=== PATIENT | male | born 1960 | race African-American/Black ===

== ENCOUNTER 2016-11-01 23:00 | Inpatient (IN) | payer OTHER ==
[~2016-11-01] VITALS: Ht 180.3 cm; Wt 59.9 kg
--- NOTE | ~2016-11-01 | PN ---
Unit #: [id number] #: [id number] Patient: RACHEL LOWERY [id number] [facility] [address] [place] [address] [id number] I MR#: [id number] NAME: RACHEL LOWERY ROOM: P211 Age: 56 Sex: M Admission Date: 11/02/2016 : 1960 Attending Physician: Jonathan Coley M.D. Admitting Physician: Jonathan Coley M.D. Primary Care Physician: Primary Care Physician Cassi COVINGTON PROGRESS NOTES DATE 11/03/2016 DISCUSSION The patient seems a bit brighter today and is reporting some reduction in his hopelessness and suicidal ideation. We continue current treatment and I have encouraged the patient to increase his participation within the therapeutic milieu. Should he sustain progress discharge could place as early as tomorrow. Dictated by... Jonathan Coley M.D. CB/crow TD: 11/04/2016 00:12 JOB #: [id number] [facility] PROGRESS NOTES Page 1 of 1 X Jonathan Coley MD X PROGRESS NOTE
--- NOTE | ~2016-11-01 | CO ---
Unit #: [id number] #: [id number] Patient: RACHEL LOWERY [id number] [facility] [address] [place] [address] [id number] I MR#: [id number] NAME: RACHEL LOWERY ROOM: P206 Age: 56 Sex: M Admission Date: 11/02/2016 : 1960 Attending Physician: Jonathan Coley M.D. Primary Care Physician: Primary Care Physician No CONSULTATION REPORT JOB NOTE: DICTATED FOR NOT DICTATED Ordering provider is Dr. Coley. REASON FOR CONSULTATION Abscess of left arm. SUBJECTIVE The patient reports that on admission, he had a very small area of tenderness and induration on his left medial elbow that has since gotten larger and more painful and is now producing heat. He denies any injury to this area. He does have full range of motion of the elbow. OBJECTIVE The patient has approximately 2 cm area of induration. No visible lesion is present. The area is tender to palpation and warm to touch. He has full range of motion of his arm and no erythema as noted. ASSESSMENT Abscess. PLAN Plan is to start the patient on Bactrim. Continue to monitor. Dictated by... Kevin Diaz/deidra TD: 11/05/2016 12:54 JOB #: [id number] CONSULTATION REPORT Page 1 of 1 X JOCE TAMAYO APRN CONSULTATION REPORT
--- NOTE | ~2016-11-01 | HP ---
Unit #: [id number] #: [id number] Patient: RACHEL LOWERY [id number] [place] [address] [id number] MR#: [id number] NAME: RACHEL LOWERY ROOM: P211 Age: 56 Sex: M Admission Date: 11/02/2016 : 1960 Attending Physician: Jonathan Coley M.D. Admitting Physician: Jonathan Coley M.D. Primary Care Physician: Primary Care Physician No HISTORY AND PHYSICAL HISTORY OF PRESENT ILLNESS The patient is a 56-year-old male admitted to [address] [place] [address] on 11/02/2016 for suicidal ideations and crack cocaine abuse. PAST MEDICAL HISTORY 1. Eczema. 2. Left shoulder ligament tear. PAST SURGICAL HISTORY Throat surgery after having his throat slit. ALLERGIES No known drug allergies. SOCIAL HISTORY He is unemployed and homeless. He smoked 1/2 pack of cigarettes daily and uses crack cocaine on a daily basis. FAMILY HISTORY Noncontributory. REVIEW OF SYSTEMS CONSTITUTIONAL: No fever or chills. HEENT: Denies any sore throat, ear pain or runny nose. CARDIOVASCULAR: Denies chest pain, irregular heart rhythm or palpitations. CHEST: Denies shortness of breath or cough. No hemoptysis. GASTROINTESTINAL: Denies nausea, vomiting, diarrhea or chronic constipation. ENDOCRINE: Denies history of increased thirst or urination. No recent significant weight loss or gain. GENITOURINARY: Denies dysuria, frequency, or hematuria. SKIN: He complains of eczema. HEMATOLOGIC: Denies history of increased bleeding or bruising. MUSCULOSKELETAL: Denies any hot, swollen joints. No generalized muscle pain. NEUROLOGIC: Denies problems with vision or speech. No frequent, severe headaches. No numbness, tingling or weakness in any extremities. Denies loss of bladder or bowel control. CURRENT MEDICATIONS Home medications could not be verified yet by the pharmacy. PHYSICAL EXAMINATION Unit #: [id number] #: [id number] Patient: RACHEL LOWERY GENERAL: He is awake, alert, oriented, in no acute distress. VITAL SIGNS: Temperature 98.3, heart rate 58, respirations 17, blood pressure 116/72. HEIGHT: 5 feet 11. WEIGHT: 132 pounds. SKIN: He has dry, flaking erythematous areas on his bilateral arms and on his abdomen. HEENT: Normocephalic. TMs not viewed. Oral and nasal passages clear. Conjunctivae clear. PERRLA. EOMs intact. NECK: Supple without lymphadenopathy or thyromegaly. HEART: Regular rate and rhythm without murmur. LUNGS: Clear. ABDOMEN: Soft, nontender. : Not done. EXTREMITIES: No evidence of cyanosis, clubbing or edema. Moves all without focal deficit. NEUROLOGICAL: Grossly within normal limits. Cranial Nerves: II: Visual crockett are intact. III, IV AND : Extraocular movements are intact. Pupils are equal, round and reactive to light. V: Facial sensation is grossly normal. VII: Facial movements and expression are normal. VIII: Auditory acuity grossly intact. IX, X: Uvula is midline. Phonation is normal. XI: Patient shrugs shoulders and turns head normally. XII: Tongue protrudes in the midline. Sensory and Motor Function: Sensory and motor sensation is grossly normal. Motor: moves all extremities well. Coordination: Gait is normal. Deep Tendon Reflexes: Intact. IMPRESSION 1. Psychiatric admission. 2. Eczema. 3. Left shoulder ligament tear. RECOMMENDATIONS PSYCHIATRIC: Per psychiatrist. MEDICAL: No contraindication to participate in facility's activities. MEDICAL PROGNOSIS Good. MEDICAL CONDITION Stable. Dictated by... Kevin Diaz/dez TD: 11/02/2016 15:19 JOB #: [id number] Unit #: [id number] #: [id number] Patient: RACHEL LOWERY HISTORY AND PHYSICAL Page 1 of 1 X JOCE TAMAYO APRN HISTORY AND PHYSICAL
--- NOTE | ~2016-11-01 | A ---
[facility] DATE: 11/02/16 Patient: RACHEL LOWERY Physician: MARY ANN Address: [address] [place] [address] Room/Bed: [address], Zip: [place] [address] Admit Date: 11/02/16 Date of : [birth year] Height: 5 11 Weight: 131 59.229979 NUTRITIONAL ASSESSMENT: REASON: Low BMI Admitting dx: 56 y/o male admitted with SI w/ plan PMH: Daily crack use, no H&P currently available Anthropometrics: Ht: 71", Wt: 132 lbs, BMI: 18 (underweight) Labs: None available Meds: Reviewed I/O & Bowel function: No issues Assessment: Patient is unemployed and recently homeless. Has been arguing with his girlfriend and feels helpless. He does crack cocaine daily. No H&P currently available, patient just admitted today. He is clinically underweight, no past weights available. Scored 0 points on the malnutrition risk screen however he reported a ~4 lb weight loss in days upon admission with poor appetite. Appetite documented as good today per nursing. He is on a regular diet with no caffeine. Suspect PO intake will improve and weight will stabilize with psych tx and by providing 3 meals/day + snacks. See RD recs below. Dx: Underweight r/t psych hx, decreased appetite AEB BMI 18. Intervention: See recs below Monitoring, Evaluation and Goals: 1. PO intake > 50% of meals. 2. Gradual weight gain towards a healthy BMI range. Monitor: per consult Recommendations: 1. Continue regular diet, encourage 3 meals/day and snacks prn. Patient may have large portion entree at lunch/dinner if desired. Encouarge fluid intake. 2. If PO intake is < 50% of meals please have MD order Ensure Plus BID to promote weight gain. [facility] DATE: 11/02/16 Patient: RACHEL LOWERY Physician: MARY ANN Address: [address] [place] [address] Room/Bed: [address], Zip: [place] [address] Admit Date: 11/02/16 Date of : [birth year] Height: 5 11 Weight: 131 59.519441 3. Please consult RD with any further nutritional needs. Mild nutrition risk Respectfully, Sushila Mccormack, ALLAN, LD Food and Nutritional Services [facility] cc: client file
--- NOTE | ~2016-11-01 | CO ---
Unit #: [id number] #: [id number] Patient: RACHEL LOWERY [id number] [facility] [address] [place] [address] [id number] MR#: [id number] NAME: RACHEL LOWERY ROOM: P211 Age: 56 Sex: M Admission Date: 11/02/2016 : 1960 Attending Physician: Jonathan Coley M.D. Primary Care Physician: Primary Care Physician No Consultation Date: 11/02/2016 CONSULTATION REPORT The patient is a 56-year-old male admitted to [address] [place] [address] on 11/02/2016. ORDERING PROVIDER Dr. Coley. REASON FOR CONSULT Eczema. SUBJECTIVE The patient reports that he was seen at [facility] 2 days ago and given a steroid injection. 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 He has flare-ups of eczema at least yearly and has been dealing with the problems for many years. OBJECTIVE Dry, scaly, erythematous areas noted on bilateral arms, back and abdomen. No drainage or weeping. ASSESSMENT Eczema. PLAN Start him on a steroid cream and Zyrtec. Dictated by... Kevin Diaz/deidra TD: 11/03/2016 05:28 JOB #: [id number] Unit #: [id number] #: [id number] Patient: RACHEL LOWERY CONSULTATION REPORT Page 1 of 1 X JOCE TAMAYO APRN X CONSULTATION REPORT
--- NOTE | ~2016-11-01 | PA ---
Unit #: [id number] #: [id number] Patient: RACHEL LOWERY [id number] [facility] [address] [place] [address] [id number] MR#: [id number] NAME: RACHEL LOWERY ROOM: P211 Age: 56 Sex: M Admission Date: 11/02/2016 : 1960 Date of Assessment: 11/02/2016 Attending Physician: Jonathan Coley M.D. Admitting Physician: Jonathan Coley M.D. Primary Care Physician: Primary Care Physician No PSYCHIATRIC ASSESSMENT IDENTIFYING INFORMATION The patient is a 56-year-old male admitted to the [address] [place] [address] unit with suicidal ideation and increased abuse of cocaine. CHIEF COMPLAINT "A lot going on." INFORMANT(S) Patient, reliability is good. HISTORY OF PRESENT ILLNESS The patient is a 56-year-old male who was admitted after he had presented to this facility voicing positive suicidal ideation with plan to slit his throat. The patient reports that he had been using a large amount of crack cocaine yesterday and had been using for about the past 3 to 4 days. He uses 200 to 300 dollars of crack cocaine on a daily basis per his report. The patient had recently been expelled from the domicile he shared with his daughter following a dispute, and he is currently homeless. The patient denies prior psychiatric treatment or chemical dependence treatment of any kind. He denies prior suicide attempts or gestures. He continues to complain of dysphoric mood and hopelessness when seen today. PAST PSYCHIATRIC HISTORY As above. PAST MEDICAL HISTORY The patient suffers from eczema and is scheduled for shoulder surgery in the near future. MEDICATIONS The patient uses a skin cream for his eczema. ALLERGIES None reported. FAMILY HISTORY Noncontributory. SOCIAL HISTORY The patient is originally from [place], [place], and states that he has a degree in accounting from [employer] in [place], [place], but is not presently employed. The patient admits to cocaine use as noted Unit #: [id number] #: [id number] Patient: RACHEL LOWERY previously. MENTAL STATUS EXAMINATION Examination at this time reveals the patient to be a thin, disheveled male appearing stated age. He is in a state of some dishevelment. He arouses with some difficulty but does participate in interview. He is oriented in all spheres. His mood is dysphoric, his affect flat. Speech is impoverished, but generally well coherent. There are no gross deficits in memory or cognition noted. Intelligence is judged to be in the average range based on fund of knowledge. The patient is cooperative throughout the interview. He is currently endorsing positive suicidal ideation with plan to cut his throat. He denies homicidal ideation. He denies any psychotic symptoms. His judgment and insight appear to be reasonably intact. ASSETS AND LIABILITIES The patient's assets: Motivation for change. Liabilities: Lack of resources, homelessness. DIAGNOSTIC IMPRESSION 1. Cocaine use disorder. 2. Eczema. TREATMENT PLAN The patient remains hospitalized for safety and stabilization. We will continue suicide precautions, and at this point will not initiate any pharmacotherapy with the patient's symptoms of depression. It is my feeling that these are probably substance-induced. The patient will participate in appropriate order of milieu activities. ESTIMATED LENGTH OF STAY 3 to 4 days. Dictated by... Jonathan Coley M.D. NITO/manny TD: 11/02/2016 11:30 JOB #: [id number] PSYCHIATRIC ASSESSMENT Page 1 of 1 X Jonathan Coley MD X PSYCHIATRIC ASSESSMENT
--- NOTE | ~2016-11-01 | DS ---
Unit #: [id number] #: [id number] Patient: RACHEL LOWERY [id number] [facility] [address] [place] [address] [id number] I MR#: [id number] NAME: RACHEL LOWERY ROOM: P206 Age: 56 Sex: M Admission Date: 11/02/2016 : 1960 Discharge Date: 11/04/2016 Attending Physician: Jonathan Coley M.D. Primary Care Physician: Primary Care Physician No DISCHARGE SUMMARY REASON FOR ADMISSION The patient is a 56-year-old male admitted to the [address] [place] [address] with thoughts of suicide and increasing abuse of crack cocaine. HOSPITAL COURSE The patient is admitted to the [address] [place] [address] and placed on suicidal precautions. He was continued on previously prescribed home medications. The patient's stay in the hospital is a fairly brief and uneventful one. His mood improved considerably. During his brief stay in the hospital by 11/04/2016 the patient was in brighter spirits and requested discharge. He was agreeable with a plan for followup in the intensive outpatient program provided by this facility and discharge was ordered. FINAL DIAGNOSIS 1. Cocaine use disorder 2. Dysthymic disorder DISPOSITION ON DISCHARGE The patient is discharged on the following medications: 1. Diprolene applied twice daily to affected area. 2. Claritin 10 mg once daily for environmental allergies. 3. Bactrim DS one tablet twice daily for skin abscess. DIET AND ACTIVITY No dietary or physical restrictions were placed upon the patient at the time of discharge. FOLLOWUP Followup to take place through the auspices of community mental health resources and the intensive outpatient chemical dependence treatment program provided by this facility. Patient's prognosis is considered fair. Dictated by... Jonathan Coley M.D. CB/rcow TD: 11/04/2016 21:09 JOB #: [id number] Unit #: [id number] #: [id number] Patient: RACHEL LOWEYR DISCHARGE SUMMARY Page 1 of 1 X Jonathan Coley MD X DISCHARGE SUMMARY
[2016-11-03 11:31] LABS: URINE APPEARANCE CLEAR; URINE BILIRUBIN NEG (NEG); URINE BLOOD NEG (NEG); URINE COLOR YELLOW; URINE GLUCOSE NEG (NEG); URINE KETONE NEG (NEG); URINE LEUKOCYTE ESTERASE 1+ (NEG); URINE NITRATE NEG (NEG); URINE PH 6.5 (5-8); URINE PROTEIN NEG (NEG); URINE SPECIFIC GRAVITY 1.008 (1.003-1.035); URINE UROBILINOGEN 0.2 MG/DL (NEG)
[2016-11-03 11:37] LABS: URBCS1 AUWI 0-2 /[HPF] (0-2); URINE BACTERIA AUWI NEG (NEGATIVE); URINE SQUAMOUS EPITHELIAL CELL NONE SEEN /[HPF]
[2016-11-03 12:02] LABS: AMPHETAMINE NEG (NEG); BARBITURATES NEG (NEG); BENZODIAZEPINES NEG (NEG); COCAINE POS (NEG); MARIJUANA NEG (NEG); OPIATES NEG (NEG); TRICYCLIC ANTIDEPRESSANTS NEG (NEG); U METHADONE NEG (NEG)
[2016-11-03 13:07] LABS: ALBUMIN SERUM 3.3 g/dL (3.5-5.0); BILIRUBIN,TOTAL 0.4 mg/dL (0.2-2.0); BUN/CREATININE RATIO 16.25; CALCIUM SERUM 9.2 mg/dL (8.4-10.2); CREATININE SERUM 0.8 mg/dL (0.6-1.4); GLOM FILT RATE Estimated 117.4 mL/min (>60); POTASSIUM 4.2 mmol/L (3.5-5.1); PROTEIN TOTAL SERUM 7.8 g/dL (6.0-8.3)
[2016-11-03 13:26] LABS: BASOPHIL% 0.3 % (0-2.5); EOSINOPHIL% 0.8 % (0.0-7.0); LYMPHOCYTE# 1.4 X10e3 (1.0-3.5); LYMPHOCYTE% 42.9 % (17.0-45.0); MEAN CELL VOLUME 82.5 FL (83-96); MEAN CORPUSCULAR HEMOGLOBIN 27.6 PG (28-34); MEAN CORPUSCULAR HGB CONC 33.4 g/dL (30-36); MEAN PLATELET VOLUME 8.5 FL (6.5-11.5); MONOCYTE# 0.6 X10e3 (0-1.0); MONOCYTE% 18.9 % (3.0-12.0); NEUTROPHIL# 1.2 X10e3 (1.5-7.1); NEUTROPHIL% 37.1 % (40-75); PLATELET COUNT 207 X10e3 (140-420); RED BLOOD COUNT 4.73 X10e (3.90-5.60); RED CELL DISTRIBUTION WIDTH 14.4 % (11.0-15.5); WHITE BLOOD COUNT 3.2 X10e3 (4.0-10.5)
[2016-11-03 13:32] LABS: DIFF IND NO
[2016-11-05] MEDS ORDERED: NO MEDICATIONS (14:24)
== END 2016-11-04 15:26 | DRG 897 ==
LOC: P2S 11-02 02:47
PROVIDERS: Specialist
DX: F14.10 Cocaine abuse, uncomplicated (principal); R45.851 Suicidal ideations; L02.414 Cutaneous abscess of left upper limb; L30.9 Dermatitis, unspecified; F17.210 Nicotine dependence, cigarettes, uncomplicated; F34.1 Dysthymic disorder
CPT/HCPCS: 80053; 80307; 81003; 85025

== ENCOUNTER 2016-11-05 08:02 | Inpatient (IN) | payer OTHER ==
[~2016-11-05] VITALS: Ht 180.3 cm; Wt 59.9 kg
--- NOTE | ~2016-11-05 | OR ---
Unit #: [id number] #: [id number] Patient: RACHEL LOWERY [id number] [address] [address] [id number] I MR#: [id number] NAME: RACHEL LOWERY ROOM: 220 Date of Procedure: 11/05/2016 Admission Date: 11/05/2016 Surgeon: Jv Stauffer M.D. : 1960 Attending Physician: Modesto Conti Jr., M.D. Primary Care Physician: Primary Care Physician No OPERATIVE REPORT PREOPERATIVE DIAGNOSIS Abscess, left upper extremity just superior and medial to the antecubital fossa. POSTOPERATIVE DIAGNOSIS Abscess, left upper extremity just superior and medial to the antecubital fossa. PROCEDURE PERFORMED Incision and drainage, left upper extremity abscess. Aerobic and anaerobic cultures sent. ANESTHESIA General endotracheal anesthesia. ESTIMATED BLOOD LOSS Less than 20 mL. INDICATIONS FOR PROCEDURE A 56-year-old gentleman presented to the emergency room with a fluctuant mass in the left upper extremity. DESCRIPTION OF PROCEDURE The patient was transported from his hospital room to the operating room and after induction of general endotracheal anesthesia, left arm was placed on an operating arm board. He had already been on vancomycin. Arm was prepped and draped in usual sterile fashion. Over the fluctuant area, a transverse incision made, dissected down, and entered the abscess cavity, where a grossly purulent drainage was obtained. Cultures were taken from the purulent drainage. I then copiously irrigated the abscess cavity and then packed it with 4x4s sponge soaked in Betadine and wrung out. 2-0 Vicryl sutures were used as stay sutures to keep the packing in place. Dry dressing followed by Kerlix roll and Amandeep wrap were placed. Sponges and needle counts were correct x3. The patient tolerated the procedure well and transported to recovery in stable condition. There was no family or friends to discuss the case with postop. Dictated by... Jv Stauffer M.D. RS/juanal Unit #: [id number] #: [id number] Patient: RACHEL LOWERY TD: 11/05/2016 18:00 JOB #: [id number] OPERATIVE REPORT Page 1 of 1 X Jv Stauffer MD OPERATIVE NOTE
--- NOTE | ~2016-11-05 | A ---
[facility] Therapy DATE: 11/06/16 Patient: RACHEL LOWERY Physician: MARIO Address: [address] [place] [address] Room/Bed: [address] [place] [address], Zip: [place] [address] Admit Date: 11/05/16 Date of : [birth year] Height: 5 11 Weight: 132 59.87 NUTRITIONAL ASSESSMENT: REASON: Low BMI Amitting dx: Pt is a 56 y/o male admitted with a LT arm abscess PMH: Daily crack use, psych problems, throat surgery, 1.5 PPD smoker, [facility] Anthropometrics: HT:71" WT:132# BMI:18.4(underweight) IBW:172# %IBW:77% Labs: Na+: 130 Ca++: 8.2 Meds: Reglan, Versed I/O & Bowel function: BM 11/04 Skin Integrity: Dressing- LUE Estimated Nutrition Needs: Icreased needs Assessment: Chart reviewed, events noted. See admitting dx and PMH as stated above. Pt is currently homeless and awaiting D/C. Of note, pt was recently admitted to [facility]. He denies his abscess is associated with IV drug use, but there is suspicion. Manager Federal was able to speak to pt at bedside. Pt reports a good appetite in the hospital and reports eating 100% of his meals 3x daily. Note empty breakfast tray in room (Pt consumed 100%). RD internet marketing executive encouraged adequate kcal and protein intake, Pt asked for a Vanilla Ensure with his lunch to promote weight gain. Pt denies any recent weight loss. Pt reported no questions at this time. RD to follow up per protocol. Dx: Underweight r/t drug use, psych problems, homeless AEB BMI 18.4 (underweight), 77% IBW. Intervention: See recs below. Monitoring, Evaluation and Goals: 1. Orake intake >75% of meals. 2. Promote gradual weight gain towards a healthy BMI. 3. Promote regular BM's. Recommendations: 1. Continue pt on regular diet and encourage 3 meals/day. [facility] Therapy DATE: 11/06/16 Patient: RACHEL LOWERY Physician: MARIO Address: [address] [place] [address] Room/Bed: [address] [place] [address], Zip: [place] [address] Admit Date: 11/05/16 Date of : [birth year] Height: 5 11 Weight: 132 59.87 2. Please order Vanilla Ensure w/ lunch to promote weight gain. RD to follow Mild nutrition risk Respectfully, Isabel Molina, MS, RD, LD Yessica Child, Manager Safe Food and Nutritional Services [facility] cc: client file
--- NOTE | ~2016-11-05 | DS ---
Unit #: [id number] #: [id number] Patient: RACHEL LOWERY [id number] [address] [place], [place] [address] [id number] MR#: [id number] NAME: RACHEL LOWERY ROOM: 220 Age: 56 Sex: M Admission Date: 11/05/2016 : 1960 Discharge Date: 11/07/2016 Attending Physician: Modesto Conti Jr., M.D. Primary Care Physician: Primary Care Physician No DISCHARGE SUMMARY DISCHARGE DIAGNOSIS Left antecubital space abscess secondary to IV drug abuse. OPERATIVE PROCEDURE Incision and drainage and debridement of left arm abscess. DISCHARGE MEDICATIONS Lortab 7.5 one p.o. q.4 hours p.r.n. pain and Bactrim DS one p.o. b.i.d., #20. HISTORY OF PRESENT ILLNESS AND HOSPITAL COURSE A 56-year-old black male with left antecubital space abscess from drug abuse. He was admitted and given intravenous antibiotics, taken to surgery, was opened, drained, and cleaned out. Postoperative course has been benign. He is ready to do dressing changes at home twice a day. Switch to oral antibiotics and pain medicine. We will see in office in 7 to 10 days. Dictated by... Crow Jiménez/deidra TD: 11/10/2016 16:44 JOB #: [id number] DISCHARGE SUMMARY Page 1 of 1 X Narayan Corrales MD X DISCHARGE SUMMARY
--- NOTE | ~2016-11-05 | US49 ---
[facility] A Service of [facility] RADIOLOGY TEXT RESULTS PATIENT: RACHEL LOWERY LOCATION: C2A : [birth year] UNIT #: [id number] AGE: [address]: Modesto Conti MD SEX: M ORDER DR: [id number] [place], [place] [address] [id number] I MR#: [id number] Acc #: [id number] NAME: RACHEL LOWERY : 1960 SEX: M STUDY DATE/TIME: 11/05/2016 9:31 UNIT: CEDOF ROOM: 06304 STUDY DESCRIPTION: US Extremity Non Vasc Complete Attending Physician: Modesto Conti Jr., M.D. Ordering Physician: Er [facility]icians Primary Care Physician: Primary Care Physician No MEDICAL IMAGING REPORT This report is preliminary unless electronic signature is present EXAM Ultrasound of the left arm soft tissue INDICATIONS Left elbow swelling for 5 days. This is located above the elbow. TECHNIQUE Fuentes-scale and color Doppler sonographic images were obtained through the area of concern. FINDINGS Patient is noted to have extensive subcutaneous edema. There is a complex collection measuring up to 2.1 x 1.4 x 2.2 cm within the area of concern which could reflect either hematoma or abscess. The Visualized vessels appear patent. IMPRESSION Within the area concern the patient has a complex collection measuring 2.1 x 1.4 x 2.2 cm with no internal color Doppler flow, both hematoma and abscess would be in the differential. Extensive subcutaneous edema is noted within the area of the area. Dictated by... Aaliyah Chin M.D. THIS IS AN ELECTRONICALLY VERIFIED REPORT Aaliyah Chin M.D. at 11/06/2016 8:02 AM MORAIMA/joshua TD: 11/05/2016 13:47 JOB #: [id number] [facility] A Service [facility] RADIOLOGY TEXT RESULTS PATIENT: RACHEL LOWERY LOCATION: C2A : [birth year] UNIT #: [id number] AGE: [address]: Modesto Conti MD SEX: M ORDER DR: MEDICAL IMAGING REPORT Page 1 of 1 COPY
--- NOTE | ~2016-11-05 | HP ---
Unit #: [id number] #: [id number] Patient: RACHEL LOWERY [id number] [address] [place], [place] [address] [id number] MR#: [id number] NAME: RACHEL LOWERY ROOM: 220 Age: 56 Sex: M Admission Date: 11/05/2016 : 1960 Attending Physician: Modesto Conti Jr., M.D. HISTORY AND PHYSICAL CHIEF COMPLAINT Severe pain in the left arm. HISTORY OF PRESENT ILLNESS Patient is a 56-year-old black male who was seen in [facility] outpatient center and complained of severe pain in his left arm. He denied any IV drug use, but this area was suspicious for that. He has had no fever or chills and no other specific symptoms. He denies injecting any medications in the area. PAST MEDICAL HISTORY 1. History of psych problems. 2. Crack cocaine use. 3. Throat surgery in the past. MEDICATIONS None. ALLERGIES None known. TRANSFUSIONS None in the past. FAMILY HISTORY Noncontributory. SOCIAL HISTORY The patient is single. He has a normal good appetite with no recent weight change. He smokes approximately a pack and a half of cigarettes per day. He states he is a nondrinker, and he has used illicit drugs. REVIEW OF SYSTEMS A 10-system review has been performed which was non-remarkable except as in History of Present Illness. PHYSICAL EXAMINATION VITAL SIGNS: Temperature on admission 98.1, pulse 86, respirations 16, blood pressure 113/65. GENERAL: Patient is a well-developed, thin, 56-year-old black male in no acute distress. HEENT: Non-remarkable. NECK: Supple. CHEST: There is equal bilateral expansion with bilateral equal breath Unit #: [id number] #: [id number] Patient: ROYSTONRACHEL sounds. The lungs are clear bilaterally. HEART: Regular rhythm without murmurs or gallops. There is no evidence of cardiomegaly clinically. ABDOMEN: Soft, nontender, benign, without palpable mass or organomegaly. There is no gross abdominal distention. No guarding or rebound. Active bowel sounds present. No evidence of ascites or hernias. EXTREMITIES: There is an obvious indurated area in the left upper arm over the biceps region. No evidence of any edema peripheral to this. The rest of his extremities are non-remarkable. NEUROLOGIC: Grossly intact. DIAGNOSTIC STUDIES IMAGING: Ultrasound in the emergency room revealed evidence of a deep, small abscess in the left upper arm. IMPRESSION The patient most likely has an abscess in the left upper arm secondary to injecting drugs even though he denies this. PLAN Go ahead with incision and drainage of this under general anesthesia. Dictated by Modesto Conti Jr. MDarrel. JAMEEL/riya TD: 11/05/2016 21:18 JOB #: [id number] HISTORY AND PHYSICAL Page 1 of 1 X Modesto Conti MD X HISTORY AND PHYSICAL
[2016-11-05 09:24] LABS: BASOPHIL% 0.2 % (0-2.5); EOSINOPHIL% 0.1 % (0.0-7.0); HEMATOCRIT 38.8 % (38.0-50.0); LYMPHOCYTE# 1.9 X10e3 (1.0-3.5); LYMPHOCYTE% 32.7 % (17.0-45.0); MEAN CELL VOLUME 81.6 FL (83-96); MEAN CORPUSCULAR HEMOGLOBIN 27.2 PG (28-34); MEAN CORPUSCULAR HGB CONC 33.4 g/dL (30-36); MEAN PLATELET VOLUME 7.8 FL (6.5-11.5); MONOCYTE# 0.8 X10e3 (0-1.0); MONOCYTE% 13.5 % (3.0-12.0); NEUTROPHIL# 3.1 X10e3 (1.5-7.1); NEUTROPHIL% 53.5 % (40-75); PLATELET COUNT 195 X10e3 (140-420); RED BLOOD COUNT 4.76 X10e (3.90-5.60); RED CELL DISTRIBUTION WIDTH 14.2 % (11.0-15.5)
[2016-11-05 09:26] LABS: DIFF IND NO; WHITE BLOOD COUNT 5.8 X10e3 (4.0-10.5)
[2016-11-05 09:46] LABS: ALBUMIN SERUM 3.7 g/dL (3.5-5.0); BILIRUBIN,TOTAL 0.7 mg/dL (0.2-2.0); BUN/CREATININE RATIO 14.54; CREATININE SERUM 1.1 mg/dL (0.6-1.4); GLOM FILT RATE Estimated 87.8 mL/min (>60); POTASSIUM 4.5 mmol/L (3.5-5.1); PROTEIN TOTAL SERUM 8.7 g/dL (6.0-8.3)
[2016-11-05] MEDS ORDERED: NO MEDICATIONS (14:24)
[2016-11-06 06:50] LABS: BUN/CREATININE RATIO 23.33; CALCIUM SERUM 8.2 mg/dL (8.4-10.2); CREATININE SERUM 0.9 mg/dL (0.6-1.4); GLOM FILT RATE Estimated 111.8 mL/min (>60); POTASSIUM 4.7 mmol/L (3.5-5.1)
[2016-11-07] MEDS ORDERED: BACTRIM DS TAB1 EACH PO (07:21)
[2016-11-07] MEDS ORDERED: LORTAB 7.5-3251 EACH PO (07:21)
== END 2016-11-07 10:16 | disposition home or self-care (01) | DRG 603 ==
LOC: CED 08:02 → C2A 12:40 → CEDOF 12:40 → CED 12:40 → CEDOF 13:14 → CED 13:14 → CEDOF 15:57 → C2A 15:57
PROVIDERS: Physician Assistant; Specialist; Surgery
PROC: 0H9EXZZ Drainage of Left Lower Arm Skin, External Approach (ICD-10-PCS; principal; 2016-11-05 14:30)
DX: L02.414 Cutaneous abscess of left upper limb (principal); F17.210 Nicotine dependence, cigarettes, uncomplicated; F19.10 Other psychoactive substance abuse, uncomplicated
CPT/HCPCS: 36415; 76881; 80048; 80053; 85025; 87070; 87075; 87205; 99284; J1100; J1885; J2250; J2270; J2765; J3370